=== PATIENT | male | born 1985 ===

== ENCOUNTER 2023-12-31 18:54 | Emergency (ER) | payer OTHER, SELFPAY ==
[2023-12-31 19:10] VITALS: BP 137/86; PULSE 77; RESP 16; TEMP 36.6; O2SAT 99; BMI 35.5
--- NOTE | 2023-12-31 20:10 | ED_ITS ---
HPI - Back Pain/Injury General Chief Complaint: Back Pain/Injury Stated Complaint: back pain Time Seen by Provider: 12/31/23 19:11 Source: patient and family History of Present Illness HPI Narrative: 38-year-old male with no reported past medical history presents by private vehicle from home for lower back pain. Patient states that he was standing to put a sock on when he felt his back spasm. He has had persistent pain since then. Took 600 mg of ibuprofen earlier this afternoon prior to arrival. States that he had some back spasms several months ago, but not this badly. Also requesting note for work. Patient denies bowel or bladder incontinence, denies saddle anesthesia. Denies numbness or weakness in his lower extremities Related Data Previous Rx's Medication Instructions Recorded cyclobenzaprine 10 mg tablet 10 mg PO TID PRN muscle spasm #30 12/31/23 tabs methylprednisolone 4 mg tablets in See Rx Instructions PO .COMPLEX 12/31/23 a dose pack (Medrol (Dc)) #21 ea Allergies Allergy/AdvReac Type Severity Reaction Status Date / Time No Known Drug Allergies Allergy Verified 12/31/23 19:17 Patient History Social History Smoking Status: Never smoker Smoking Status: Never smoker Substance Use Type: marijuana Exam Initial Vital Signs Initial Vital Signs: Vital Signs Temperature 97.8 F 12/31/23 19:10 Pulse Rate 77 12/31/23 19:10 Respiratory Rate 16 12/31/23 19:10 Blood Pressure 137/86 12/31/23 19:10 Pulse Oximetry 99 12/31/23 19:10 Oxygen Delivery Method Room Air 12/31/23 19:10 Const: Awake, alert, no acute distress, nontoxic appearing MSK back: Atraumatic, no midline tenderness, full ROM, generalized lumbar tenderness to palpation Skin: Warm, Dry, intact, no rashes Neuro: AO x3, CN II-XII grossly intact, moves all extremities Course Orders Ordered: Discontinued Medications Acetaminophen (Acetaminophen 325 Mg Tablet) 975 mg PO NOW ONE Stop: 12/31/23 20:11 Last Admin: 12/31/23 20:23 Dose: 975 mg Documented By: BRITTNI Cyclobenzaprine HCl (Cyclobenzaprine 10 Mg Tablet) 10 mg PO NOW ONE Stop: 12/31/23 20:11 Last Admin: 12/31/23 20:24 Dose: 10 mg Documented By: BRITTNI Dexamethasone (Dexamethasone 10 Mg/Ml Vial) 10 mg PO NOW ONE Stop: 12/31/23 20:11 Last Admin: 12/31/23 20:24 Dose: 10 mg Documented By: BRITTNI Ketorolac Tromethamine (Ketorolac 30 Mg/Ml Vial) 30 mg IM NOW ONE Stop: 12/31/23 20:11 Last Admin: 12/31/23 20:24 Dose: 30 mg Documented By: BRITTNI Lidocaine (Lidocaine 5% Patch) 1 each TOP NOW ONE Stop: 12/31/23 20:11 Last Admin: 12/31/23 20:25 Dose: 1 each Documented By: BRITTNI Vital Signs Vital signs: Vital Signs - 8 hr 12/31/23 19:10 12/31/23 20:40 Temperature 97.8 F 97.4 F L Pulse Rate 77 70 Respiratory Rate 16 16 Blood Pressure 137/86 132/74 Pulse Oximetry 99 98 Oxygen Delivery Method Room Air Room Air MDM - Back Pain/Injury Differential Diagnosis Differential diagnosis: Likely lumbar radiculopathy, sciatica and strain of lumbar region Lab Data Labs: Urine Dip Bedside Urine Glucose Negative Bedside Urine Bilirubin - Negative Bedside Urine Ketone - Negative Urine Specific [place] 1.015 Bedside Urine Occult Blood - Negative Bedside Urine pH 8.0 Bedside Urine Protein - Negative Bedside Urine Urobilinogen - Negative Bedside Urine Nitrite - Negative Bedside Urine Leukocytes - Negative Esterase MDM Narrative Medical decision making narrative: atraumatic non-midline lower back pain. Likely muscle strain. No signs/symptoms of cauda equina. Patient given non-narcotic medications for symptoms, recommended gentle stretching, low-impact activity, and close PCP follow up. Note for work provided. Discharge Plan Departure Patient Disposition: Home Clinical Impression: Acute back pain Instructions: DI for Back Spasm Activity Restrictions/Additional Instructions: You most likely have a spasm of your lower back muscles. Without trauma there is no indication for imaging at this time. Follow up with your primary care doctor if you continue to experience low back pain. Use gentle stretching exercises, gentle activity, anti-inflammatories such as ibuprofen, Tylenol for pain. Most back spasms and injuries fixed themselves and several weeks. If you have persistent back pain then discussed future options with your primary care doctor. The cyclobenzaprine may make you drowsy, do not take this medication with alcohol or before driving. Prescriptions: New methylprednisolone [Medrol (Dc)] 4 mg tablets,dose pack See Rx Instructions .ROUTE .COMPLEX Qty: 21 0RF Rx Instructions: for 6 days cyclobenzaprine 10 mg tablet 10 mg PO TID PRN (Reason: muscle spasm) Qty: 30 0RF Stand Alone Forms: Patient Portal/API, Work Release Note
[2023-12-31] MEDS: ACETAMINOPHEN 325 MG TABLET 975 MG PO (20:23)
[2023-12-31] MEDS: KETOROLAC 30 MG/ML VIAL IM (20:24)
[2023-12-31] MEDS: CYCLOBENZAPRINE 10 MG TABLET PO (20:24)
[2023-12-31] MEDS: DEXAMETHASONE 10 MG/ML VIAL PO (20:24)
[2023-12-31] MEDS: LIDOCAINE 5% PATCH 1 EACH TOP (20:25)
[2023-12-31 20:40] VITALS: BP 132/74; PULSE 70; RESP 16; TEMP 36.3; O2SAT 98
== END 2023-12-31 20:41 | disposition home or self-care (01) ==
PROVIDERS: Emergency Provider Emergency Medicine
DX: M54.50 Low back pain, unspecified (principal); M62.830 Muscle spasm of back
CPT/HCPCS: 81003; 96372; 99283; J1100; J1885